=== PATIENT | male | born 1970 | race African-American/Black ===

== ENCOUNTER 2017-07-13 09:58 | Emergency (ER) | payer OTHER ==
[2017-07-13 10:16] VITALS: BP 142/86
--- NOTE | 2017-07-13 10:20 | UC ---
Knee Pain HPI - HPI Summary HPI Summary: 46 yo male presents with left knee pain and swelling for the last 2 days. He tells me that 3 days ago he was at work walking on rebar all day - no specific injury, but the next day woke up with pain and mild swelling to left knee. Has been taking ibuprofen with no relief. Is able to bear weight and ambulate without assistance. Denies fever, chills, numbness, or tingling. Also has a nodule on the dorsal aspect of his right thumb that has been there for months. - History of Current Complaint Chief Complaint: UCLowerExtremity Stated Complaint: KNEE INJURY Time Seen by Provider: 07/13/17 10:20 Hx Obtained From: Patient Onset/Duration: Sudden Onset Severity Initially: Moderate Severity Currently: Severe Pain Intensity: 10 Pain Scale Used: 0-10 Numeric Character: Aching, Stiffness Aggravating Factor(s): Movement, Weight Bearing Alleviating Factor(s): Rest - Allergies/Home Medications Allergies/Adverse Reactions: Allergies Allergy/AdvReac Type Severity Reaction Status Date / Time SEAFOOD Allergy Severe Swelling Uncoded 07/13/17 10:16 Home Medications: Home Medications Lisinopril [Lisinopril] 20 mg PO DAILY 07/13/17 [History Confirmed 07/13/17] PMH/Surg Hx/FS Hx/Imm Hx Previously Healthy: Yes Cardiovascular History: Hypertension - Surgical History Surgical History: Yes Surgery Procedure, Year, and Place: HERNIA REPAIR, 2 [facility] TENDON SURGERIES - Family History Known Family History: Positive: Hypertension - Social History Occupation: Employed Full-time Lives: With Family Alcohol Use: Occasionally Substance Use Type: None Smoking Status (MU): Never Smoked Tobacco Review of Systems Constitutional: Negative Skin: Negative Respiratory: Negative Cardiovascular: Negative Gastrointestinal: Negative Neurovascular: Negative Musculoskeletal: Other: - Left knee pain/swelling Neurological: Negative Psychological: Negative All Other Systems Reviewed And Are Negative: Yes Physical Exam - Summary Physical Exam Summary: GENERAL: NAD. WDWN. No pain distress. SKIN: No rashes, sores, lesions, or open wounds. NECK: Supple. Nontender. No lymphadenopathy. CHEST: No accessory muscle use. Breathing comfortably and in no distress. CV: RRR. Without m/r/g. Pulses intact popliteal, PT, and DP. Brisk cap refill. MSK: Left knee: Moderate TTP about anterior knee. Mild edema. FROM. Strength 5/ 5. No obvious bony deformities. No patella apprehension. Negative Brando, A/P drawer, Figueroa, and varus/valgus stress. Right thumb: FROM. 4mm nodule on dorsal aspect of IP joint. NTTP. NEURO: Alert. Sensations intact and symmetric B/L LEs PSYCH: Age appropriate behavior. Triage Information Reviewed: Yes Vital Signs: Initial Vital Signs Temp 98 F 07/13/17 10:13 Pulse 61 07/13/17 10:13 Resp 16 07/13/17 10:13 BP 142/86 07/13/17 10:13 Pulse Ox 100 07/13/17 10:13 Knee Pain Course/Dx - Course Course Of Treatment: Knee XR: IMPRESSION: Degenerative changes medial compartment left knee. Edema is noted superficial. to the patella likely representing prepatellar bursitis. Has seen Dr. Rodriguez in the past and would like to follow up with him again regarding his knee. Nodule on right thumb likely a tendon nodule - not causing him any limited ROM or discomfort. He will follow up with Dr. Rodriguez for this as well. - Differential Dx/Diagnosis Provider Diagnoses: Left knee prepatellar bursitis. Right thumb tendon nodule Discharge - Sign-Out/Discharge Documenting (check all that apply): Discharge/Admit/Transfer - Discharge Plan Condition: Stable Disposition: HOME Patient Education Materials: Knee Bursitis (ED), Swollen Knee Joint (ED) Referrals: Jamaal Mackey MD [Primary Care Provider] - Erick Rodriguez MD [Medical Doctor] - As Soon As Possible Additional Instructions: If you develop a fever, shortness of breath, chest pain, new or worsening symptoms - please call your PCP or go to the ED. Your blood pressure was high at todays visit. Please see your primary provider within 4 weeks for recheck and re-evaluation 1) Rest, Ice, and Elevate your knee as much as possible over the next 24-48hours 2) May continue to take ibuprofen every 6-8hours as needed 3) Please follow up with Dr. Rodriguez tomorrow as scheduled regarding your knee pain and swelling - Billing Disposition and Condition Condition: STABLE Disposition: HOME
--- NOTE | 2017-07-13 11:09 | RAD ---
Indication: Left knee pain. Swelling. 4 views of left knee demonstrates joint space narrowing in the medial compartment. Degenerative changes of the patellofemoral joint is noted. Soft tissue swelling is noted superficial to the patella which may represent prepatellar bursitis. IMPRESSION: Degenerative changes medial compartment left knee. Edema is noted superficial to the patella likely representing prepatellar bursitis.
[2017-07-13] MEDS ORDERED: Ketorolac INJ* 30 MG/ML 1 ML VIAL IM ONE (11:13)
== END 2017-07-13 11:25 | disposition home or self-care (01) ==
LOC: UCEAST 09:58
DX: M70.42 Prepatellar bursitis, left knee (principal); Y93.H3 Activity, building and construction; M67.88 Other specified disorders of synovium and tendon, other site; I10 Essential (primary) hypertension
CPT/HCPCS: 96372; 99212; G0463; J1885